=== PATIENT | female | born 1970 | race Hispanic/Latino ===

== ENCOUNTER 2021-07-27 02:41 | Observation (INO) | payer SELFPAY ==
[2021-07-27 05:12] VITALS: BMI 26.4
[2021-07-27] MEDS ORDERED: Calcium Carbonate 500 MG ChewTAB PO PRN (08:43)
[2021-07-27] MEDS: Aspirin 81 mg Enteric Coated Tablet PO SCH (10:39)
[2021-07-27] MEDS: Acetaminophen 325 MG TAB PO PRN (12:15)
[2021-07-27] MEDS: Sodium Chloride 0.9% 1,000 ML IV SCH (18:59)
[2021-07-27] MEDS ORDERED: Amitriptyline HCl 25 MG TAB PO SCH ×2 (21:00)
[2021-07-27] MEDS ORDERED: Atorvastatin Calcium 40 MG TAB PO SCH (21:00)
[2021-07-27] MEDS ORDERED: Zolpidem Tartrate 5 MG TAB PO SCH (23:00)
[2021-07-28 05:57] LABS: #Basophils 0.2 thou/uL (0.0-0.2); #Eosinphils 0.3 thou/uL (0.0-0.7); #Lymphocytes 2.5 thou/uL (1.20-3.40); #Monocytes 0.5 thou/uL (0.11-0.59); %Basophils 2.4 % (0.0-1.0); %Eosinophils 5.2 % (0.0-10.0); %Lymphocytes 38.3 % (21.0-51.0); %Monocytes 7.6 % (0.0-10.0); %Neutrophils 46.5 % (42.0-75.0); Hemoglobin 12.4 g/dL (12.0-16.0); Mean Corpuscular HGB CONC 36.9 g/dL (32.0-36.0); Mean Corpuscular Hemoglobin 32.5 pg (27.0-31.0); Mean Platelet Volume 7.4 fL (7.4-10.4); Platelet Count 285 thou/uL (130-400); RBC Distribution Width 11.2 % (11.5-14.5); Red Blood Cell (RBC) Count 3.82 mill/uL (4.20-5.40); White Blood Cell (WBC) Count 6.4 thou/uL (4.8-10.8)
[2021-07-28 06:25] LABS: Anion Gap 11 mmol/L (10-20); BUN (Urea Nitrogen) 11 mg/dL (9.8-20.1); Calc. Creatinine Clearance 79 mL/min (70-130); Carbon Dioxide 25 mmol/L (22-29); Cardiac Risk 3.2 (Less than 4.5); Chloride 107 mmol/L (98-107); Cholesterol 152 mg/dl (< 200 Desired); Glucose 94 mg/dL (70-105); HDL Cholesterol 47 mg/dL (>60 Neg Risk); LDL Cholesterol, Calculated 82 mg/dL; Sodium 139 mmol/L (136-145); Triglycerides 115 mg/dL (Less than 150)
[2021-07-28 06:26] LABS: CK (CPK) 134 U/L (29-168); CRP (Inflammatory) Less than 0.50 mg/dL (= or < 0.5)
[2021-07-28] MEDS ORDERED: Non-Formulary Item 1 EACH (Levothyroxine Sodium [Levothyroxine] 75 MCG Capsule) PO SCH (07:30)
[2021-07-28] MEDS ORDERED: Levothyroxine Sodium 75 MCG TAB PO SCH (07:30)
[2021-07-28] MEDS: Aspirin 81 mg Enteric Coated Tablet PO SCH (08:29)
[2021-07-28] MEDS ORDERED: ELETRIPTAN HYDROBROMIDE 20 MG PO SCH (09:00)
[2021-07-28] MEDS ORDERED: Enoxaparin Sodium 40 MG/0.4 ML SYRINGE SC SCH (09:00)
[2021-07-28] MEDS: Sodium Chloride 0.9% 1,000 ML IV SCH (09:32)
[2021-07-28] MEDS: Acetaminophen 325 MG TAB PO PRN (09:37)
[2021-07-28 11:58] VITALS: BP 115/66; TEMP 98.7
[2021-07-28] MEDS ORDERED: Zolpidem Tartrate 5 MG TAB PO SCH (21:00)
[2021-07-30] MEDS ORDERED: FLU VACC QS2021-22(6MOS UP)/PF 60 MCG/0.5 ML SYRINGE IM ONE (09:00)
== END 2021-07-28 13:54 | disposition home or self-care (01) ==
LOC: 3SE 04:50
PROVIDERS: ADMIT Student in an Organized Health Care Education/Training Program; ATTEND Internal Medicine
DX: R41.82 Altered mental status, unspecified (principal); G43.909 Migraine, unspecified, not intractable, without status migrainosus; I50.20 Unspecified systolic (congestive) heart failure; I08.1 Rheumatic disorders of both mitral and tricuspid valves; E03.9 Hypothyroidism, unspecified; R53.1 Weakness; Z79.899 Other long term (current) drug therapy
CPT/HCPCS: 36415; 70551; 80048; 80061; 82550; 82607; 82746; 83520; 85025; 85652; 86038; 86140; 86200; 86225; 90471; 90686; 93306; 96372; G0008; G0378; J1650; J7050